=== PATIENT | female | born 1950 | race Caucasian/White ===

== ENCOUNTER 2019-03-23 12:56 | Day surgery (SDC) | payer MEDICARE, OTHER ==
[2019-03-23 13:49] LABS: ADD MAN DIFF? NO
[2019-03-23 13:51] LABS: WHITE BLOOD COUNT 7.2 10^3/ul (4.8-10.8)
[2019-03-23 13:51] LABS: BASOPHILS % 0.4 % (0.0-2.0); EOSINOPHILS # 0.3 10^3/ul (0.0-0.5); EOSINOPHILS % 3.9 % (0.0-7.0); HEMATOCRIT 33.9 % (37.0-47.0); HEMOGLOBIN 11.7 g/dl (12.0-16.0); LYMPHOCYTES % 27.8 % (15.0-51.0); MEAN CORPUSCULAR HEMOGLOBIN 29.6 pg (29.0-33.0); MEAN CORPUSCULAR HGB CONC 34.5 g/dl (32.0-37.0); MEAN CORPUSCULAR VOLUME 85.8 fl (82.0-101.0); MEAN PLATELET VOLUME 9.6 fl (7.4-10.4); MONOCYTE # 0.7 10^3/ul (0.3-0.9); MONOCYTES % 9.5 % (0.0-11.0); NEUTROPHIL # 4.2 10^3/ul (1.6-7.5); NEUTROPHILS % 58.1 % (39.0-77.0); PLATELET COUNT 357 10^3/UL (140-415); RED BLOOD COUNT 3.95 10^6/ul (4.20-5.40)
[2019-03-23] MEDS ORDERED: SOD CHLORIDE 0.45% 1,000 ML IV (14:00)
[2019-03-23] MEDS: FAMOTIDINE 20 MG TAB PO (14:03)
[2019-03-23] MEDS: DIPHENHYDRAMINE 50 MG CAP PO (14:03)
[2019-03-23] MEDS: DIAZEPAM 5 MG TAB PO (14:06)
[2019-03-23 14:09] LABS: INR 1.02; PROTIME 13.5 Sec (11.9-14.9); PT RATIO 1.1
[2019-03-23 14:13] LABS: ANION GAP 8 (5-13); BLOOD UREA NITROGEN 15 mg/dl (7-20); CALCIUM 10.2 mg/dl (8.4-10.2); CARBON DIOXIDE 29 mmol/L (21-31); CHLORIDE 99 mmol/L (97-110); CHOL/HDL RATIO 3.7 RATIO; CHOLESTEROL 189 mg/dl (100-200); CREATININE 0.68 mg/dl (0.44-1.00); Estimated GFR > 60 mL/min (>60); GLUCOSE 111 mg/dl (70-220); HDL CHOLESTEROL 50 mg/dl (33-92); LDL CHOLESTEROL,CALCULATED 108 mg/dl; POTASSIUM 3.9 mmol/L (3.5-5.1); SODIUM 136 mmol/L (135-144); TRIGLYCERIDES 153 mg/dl (0-149)
[2019-03-23] MEDS ORDERED: BUPIVACAINE 0.5% (SDV) 30 ML INJ (14:23)
[2019-03-23] MEDS ORDERED: IODIXANOL LOCM 50 ML BTL (14:23)
[2019-03-23] MEDS ORDERED: NITROGLYCERIN (IC) 100 MCG/ML INJ (14:24)
[2019-03-23] MEDS ORDERED: VERAPAMIL 5 MG INJ (14:24)
[2019-03-23] MEDS ORDERED: MIDAZOLAM 1 MG/ML 2 ML INJ (14:27)
[2019-03-23] MEDS ORDERED: FENTAnyl 50 MCG/ML VIAL (14:28)
[2019-03-23] MEDS ORDERED: morphine 2 MG INJ IV (15:30)
[2019-03-23] MEDS ORDERED: ACETAMINOPHEN 325 MG TAB PO (15:30)
[2019-03-23] MEDS ORDERED: ONDANSETRON 4 MG INJ IV (15:30)
[2019-03-23] MEDS: SOD CHLORIDE 0.9% 1,000 ML IV (16:01)
== END 2019-03-23 18:35 | disposition home or self-care (01) ==
LOC: CCL 12:56 → SDS 12:56 → CCL 18:35
DX: I25.10 Atherosclerotic heart disease of native coronary artery without angina pectoris (principal); R94.39 Abnormal result of other cardiovascular function study; I10 Essential (primary) hypertension; E78.5 Hyperlipidemia, unspecified; E11.9 Type 2 diabetes mellitus without complications
CPT/HCPCS: 71045; 80048; 80061; 82962; 85025; 85610; 85730; 93005; 93458

== ENCOUNTER 2019-03-31 07:25 | Observation (INO) | payer MEDICARE, OTHER ==
[~2019-03-31 07:25] MED LIST: ACETAMINOPHEN 500 MG TAB PO; CEFAZOLIN 2 GM/50 ML (PMX) 50 ML IVPB; TRANEXAMIC ACID 1GM/100ML(PMX) 100 ML INTRA-OP X1 IVPB; TRANEXAMIC ACID 1GM/100ML(PMX) 100 ML PRE-OP X1 IVPB
[2019-03-31] MEDS: LACTATED RINGER'S 1,000 ML IV* (08:28)
[2019-03-31] MEDS: DEXAMETHASONE 4 MG/ML 1 ML INJ IV (08:30)
[2019-03-31] MEDS: ONDANSETRON 4 MG INJ IV ×3 (08:30→17:53)
[2019-03-31] MEDS: LANSOPRAZOLE 30 MG CAP PO (08:30)
[2019-03-31] MEDS: oxyCODONE (CR) 10 MG TAB [oxyCONTIN] PO (08:30)
[2019-03-31] MEDS: ACETAMINOPHEN 1000MG/100ML IV 100 ML IVPB (08:34)
[2019-03-31] MEDS ORDERED: MIDAZOLAM 1 MG/ML 2 ML INJ (10:09)
[2019-03-31] MEDS ORDERED: CEFAZOLIN 1 GM INJ (10:28)
[2019-03-31] MEDS ORDERED: TRANEXAMIC ACID 1GM/100ML(PMX) 100 ML ×2 (10:28→11:32)
[2019-03-31] MEDS ORDERED: PROPOFOL 20 ML (10:28)
[2019-03-31] MEDS ORDERED: ROCURONIUM 50 MG INJ (10:28)
[2019-03-31] MEDS: POLYMYXIN B 500000 UNIT INJ (11:10)
[2019-03-31] MEDS: PAIN COCKTAIL VANCO INJ (11:10)
[2019-03-31] MEDS: BACITRACIN 50000 UNITS INJ (11:10)
[2019-03-31] MEDS ORDERED: GLYCOPYRROLATE 0.4 MG INJ (11:53)
[2019-03-31] MEDS ORDERED: NEOSTIGMINE 3 MG/3 ML SYRINGE (11:53)
[2019-03-31] MEDS ORDERED: ONDANSETRON 4 MG INJ (11:53)
[2019-03-31] MEDS ORDERED: DEXAMETHASONE 4 MG/ML 5 ML INJ (11:53)
[2019-03-31] MEDS ORDERED: ONDANSETRON 4 MG INJ IV (12:30)
[2019-03-31] MEDS ORDERED: NACL 0.9% 3 ML SYG IV (12:30)
[2019-03-31] MEDS ORDERED: EPHEDrine SULFATE 50 MG/5 ML SYG IV (12:30)
[2019-03-31] MEDS ORDERED: FENTAnyl 50 MCG/ML VIAL IV ×2 (12:30)
[2019-03-31] MEDS ORDERED: KETOROLAC 30 MG INJ IV (12:30)
[2019-03-31] MEDS ORDERED: MEPERIDINE 25 MG INJ IV (12:30)
[2019-03-31] MEDS ORDERED: LABETALOL HCL 20MG INJ IV (12:30)
[2019-03-31] MEDS ORDERED: DIPHENHYDRAMINE 50 MG INJ IV (12:30)
[2019-03-31] MEDS ORDERED: HYDROmorphONE 1 MG/5 ML IV SYRINGE IV ×2 (12:30)
[2019-03-31] MEDS ORDERED: hydrALAzine 20 MG INJ IV (12:30)
[2019-03-31] MEDS ORDERED: METOCLOPRAMIDE 10 MG INJ IV (12:30)
[2019-03-31] MEDS ORDERED: NALOXONE (0.4 MG/ML) INJ IV (12:30)
[2019-03-31] MEDS ORDERED: OXYCODONE/ACETAMINOPHEN (5/325) TAB PO ×2 (12:30)
[2019-03-31] MEDS ORDERED: ALBUTEROL 0.083% (NEB) 2.5 MG/3 ML AMP HHN (12:30)
[2019-03-31] MEDS: FENTAnyl 50 MCG/ML VIAL IV (12:53)
[2019-03-31] MEDS: HYDROmorphONE 1 MG/5 ML IV SYRINGE IV (12:53)
[2019-03-31] MEDS ORDERED: CEFAZOLIN 1 GM/50 ML (PMX) 50 ML IVPB (13:03)
[2019-03-31] MEDS: DOCUSATE SODIUM 100 MG CAP PO (13:06)
[2019-03-31] MEDS ORDERED: CEFAZOLIN 2 GM/50 ML (PMX) 50 ML IVPB (14:00)
[2019-03-31] MEDS: GABAPENTIN 100 MG CAP PO ×2 (14:46→20:09)
[2019-03-31] MEDS: ACCU-CHEK XX ×2 (17:25→20:33)
[2019-03-31] MEDS: metFORMIN 500 MG TAB PO (17:52)
[2019-03-31] MEDS: CEFAZOLIN 2 GM/50 ML (PMX) 50 ML IVPB (17:53)
[2019-03-31] MEDS: oxyCODONE 5 MG TAB PO (18:06)
[2019-03-31] MEDS: KETOROLAC 15 MG INJ IV (20:08)
[2019-03-31] MEDS: RANITIDINE 150 MG TAB PO (20:09)
[2019-03-31] MEDS: traZODone 50 MG TAB PO (20:09)
[2019-03-31] MEDS: MONTELUKAST 10 MG TAB PO ×2 (20:09→21:00)
[2019-04-01] MEDS: ONDANSETRON 4 MG INJ IV ×2 (00:30→06:03)
[2019-04-01] MEDS: LORAZEPAM 1 MG TAB PO (01:34)
[2019-04-01] MEDS: CEFAZOLIN 2 GM/50 ML (PMX) 50 ML IVPB ×2 (01:36→10:31)
[2019-04-01] MEDS: KETOROLAC 15 MG INJ IV ×3 (05:54→17:46)
[2019-04-01] MEDS: metFORMIN 500 MG TAB PO ×2 (08:38→17:44)
[2019-04-01] MEDS: CITALOPRAM 20 MG TAB PO (08:38)
[2019-04-01] MEDS: CELECOXIB 100 MG CAP PO ×2 (08:38→21:19)
[2019-04-01] MEDS: NEBIVOLOL 5 MG TAB PO (08:39)
[2019-04-01] MEDS: ASPIRIN (EC) 81 MG TAB PO ×2 (08:39→21:20)
[2019-04-01] MEDS: GABAPENTIN 100 MG CAP PO ×3 (08:39→21:19)
[2019-04-01] MEDS: ACCU-CHEK XX ×4 (08:40→21:22)
[2019-04-01] MEDS: oxyCODONE 5 MG TAB PO ×3 (10:31→18:44)
[2019-04-01 11:07] LABS: ADD MAN DIFF? NO
[2019-04-01 11:13] LABS: BASOPHILS % 0.1 % (0.0-2.0); HEMATOCRIT 30.3 % (37.0-47.0); HEMOGLOBIN 10.2 g/dl (12.0-16.0); LYMPHOCYTES # 1.6 10^3/ul (0.8-2.9); LYMPHOCYTES % 10.3 % (15.0-51.0); MEAN CORPUSCULAR HEMOGLOBIN 28.8 pg (29.0-33.0); MEAN CORPUSCULAR HGB CONC 33.7 g/dl (32.0-37.0); MEAN CORPUSCULAR VOLUME 85.6 fl (82.0-101.0); MEAN PLATELET VOLUME 9.7 fl (7.4-10.4); MONOCYTE # 1.1 10^3/ul (0.3-0.9); MONOCYTES % 7.4 % (0.0-11.0); NEUTROPHIL # 12.4 10^3/ul (1.6-7.5); NEUTROPHILS % 81.9 % (39.0-77.0); PLATELET COUNT 331 10^3/UL (140-415); RED BLOOD COUNT 3.54 10^6/ul (4.20-5.40); RED CELL DISTRIBUTION WIDTH 12.8 % (11.5-14.5)
[2019-04-01 11:13] LABS: WHITE BLOOD COUNT 15.1 10^3/ul (4.8-10.8)
[2019-04-01 11:45] LABS: ANION GAP 10 (5-13); BLOOD UREA NITROGEN 17 mg/dl (7-20); CALCIUM 9.9 mg/dl (8.4-10.2); CARBON DIOXIDE 28 mmol/L (21-31); CHLORIDE 94 mmol/L (97-110); CREATININE 0.79 mg/dl (0.44-1.00); Estimated GFR > 60 mL/min (>60); GLUCOSE 136 mg/dl (70-220); POTASSIUM 4.1 mmol/L (3.5-5.1); SODIUM 132 mmol/L (135-144)
[2019-04-01] MEDS: POLYETHYLENE GLYCOL 17 GM PACKET PO ×2 (14:57→21:20)
[2019-04-01] MEDS ORDERED: hydrALAzine 20 MG INJ IV (20:30)
[2019-04-01] MEDS: MONTELUKAST 10 MG TAB PO (21:00)
[2019-04-01] MEDS: traZODone 50 MG TAB PO (21:19)
[2019-04-01] MEDS: RANITIDINE 150 MG TAB PO (21:20)
[2019-04-01] MEDS: AMLODIPINE 10 MG TAB PO (21:20)
[2019-04-02] MEDS: KETOROLAC 15 MG INJ IV ×2 (04:50→11:26)
[2019-04-02] MEDS: PANTOPRAZOLE (EC) 40 MG TAB PO (04:51)
[2019-04-02 05:04] LABS: ADD MAN DIFF? NO
[2019-04-02 05:06] LABS: WHITE BLOOD COUNT 9.1 10^3/ul (4.8-10.8)
[2019-04-02 05:06] LABS: BASOPHILS % 0.1 % (0.0-2.0); EOSINOPHILS # 0.1 10^3/ul (0.0-0.5); HEMATOCRIT 27.9 % (37.0-47.0); HEMOGLOBIN 9.2 g/dl (12.0-16.0); LYMPHOCYTES # 1.3 10^3/ul (0.8-2.9); LYMPHOCYTES % 14.6 % (15.0-51.0); MEAN CORPUSCULAR HEMOGLOBIN 28.7 pg (29.0-33.0); MEAN CORPUSCULAR VOLUME 86.9 fl (82.0-101.0); MEAN PLATELET VOLUME 9.6 fl (7.4-10.4); MONOCYTES % 10.4 % (0.0-11.0); NEUTROPHIL # 6.7 10^3/ul (1.6-7.5); NEUTROPHILS % 73.7 % (39.0-77.0); PLATELET COUNT 270 10^3/UL (140-415); RED BLOOD COUNT 3.21 10^6/ul (4.20-5.40); RED CELL DISTRIBUTION WIDTH 13.1 % (11.5-14.5)
[2019-04-02 05:20] LABS: ANION GAP 6 (5-13); BLOOD UREA NITROGEN 16 mg/dl (7-20); CALCIUM 8.9 mg/dl (8.4-10.2); CARBON DIOXIDE 31 mmol/L (21-31); CHLORIDE 94 mmol/L (97-110); CREATININE 0.68 mg/dl (0.44-1.00); Estimated GFR > 60 mL/min (>60); GLUCOSE 113 mg/dl (70-220); POTASSIUM 3.6 mmol/L (3.5-5.1); SODIUM 131 mmol/L (135-144)
[2019-04-02] MEDS: ACCU-CHEK XX (07:20)
[2019-04-02] MEDS: CELECOXIB 100 MG CAP PO (09:03)
[2019-04-02] MEDS: GABAPENTIN 100 MG CAP PO (09:04)
[2019-04-02] MEDS: oxyCODONE 5 MG TAB PO (09:04)
[2019-04-02] MEDS: POLYETHYLENE GLYCOL 17 GM PACKET PO (09:04)
[2019-04-02] MEDS: ASPIRIN (EC) 81 MG TAB PO (09:04)
[2019-04-02] MEDS: CITALOPRAM 20 MG TAB PO (09:04)
[2019-04-02] MEDS: metFORMIN 500 MG TAB PO (09:08)
[2019-04-02] MEDS: NEBIVOLOL 5 MG TAB PO (09:08)
== END 2019-04-02 13:30 | disposition home or self-care (01) ==
LOC: REC 07:25 → MS1 13:35
PROVIDERS: Orthopaedic Surgery Adult Reconstructive Orthopaedic Surgery
DX: M17.12 Unilateral primary osteoarthritis, left knee (principal); I10 Essential (primary) hypertension; E11.9 Type 2 diabetes mellitus without complications
CPT/HCPCS: 27447; 73560; 80048; 82962; 85025; 88304; 88311; 97116; 97161; 97530; 99217